=== PATIENT | female | born 1985 | race African-American/Black ===

== ENCOUNTER 2021-12-28 12:28 | Emergency (ER) | payer SELFPAY ==
[2021-12-28] MEDS ORDERED: Sodium Chloride 0.9% 10 ML Syringe FLUSH PRN (13:13)
[2021-12-28] MEDS ORDERED: Sodium Chloride 0.9% 2.5 ML Syringe FLUSH PRN (13:13)
[2021-12-28] MEDS ORDERED: Ketorolac 30 MG/ML SDV IVPUSH ONE (13:37)
[2021-12-28 14:00] LABS: BLOOD UREA NITROGEN,BUN 8 mg/dL (7.0-18.0); CARBON DIOXIDE,CO2 27.2 mmol/L (21.0-32.0); CHLORIDE,CL 105 mmol/L (98-107); GLUCOSE RANDOM 87 mg/dL (74-106); SODIUM,NA 140 mmol/L (136-145)
[2021-12-28] MEDS ORDERED: Clindamycin Phosphate in D5W 600 MG in Premix Bag 1 BAG IV ONE ×2 (14:00)
[2021-12-28] MEDS ORDERED: Iopamidol 755 MG/ML 500 ML Multipack Bottle IVPUSH STA (15:38)
== END 2021-12-28 17:31 | disposition home or self-care (01) ==
LOC: MW.ED 12:28
DX: L03.211 Cellulitis of face (principal); K02.9 Dental caries, unspecified; Z88.0 Allergy status to penicillin; Z91.040 Latex allergy status; Z72.0 Tobacco use
CPT/HCPCS: 36415; 70487; 70487-26; 80053; 84703; 85025; 96365; 96375; 99283; 99283-25; J1885; J3490; Q9967